=== PATIENT | male | born 1985 | race Hispanic/Latino ===

== ENCOUNTER → 2019-04-16 | Day surgery (SDC) | payer BC ==
[2019-04-14 15:04] LABS: BASOPHILS # (AUTO) 0.1 (0.0-0.1); BASOPHILS % 0.7 % (0.0-1.0); EOSINOPHILS # (AUTO) 0.3 (0.0-0.4); EOSINOPHILS % 3.1 % (0.0-6.0); HEMATOCRIT 48.6 % (38.2-49.6); HEMOGLOBIN 16.6 g/dL (14.0-18.0); LYMPHOCYTES # (AUTO) 2.1 (1.0-3.2); LYMPHOCYTES % 24.1 % (18.0-39.1); MEAN CORPUSCULAR HGB CONC 34.2 g/dL (31-35); MEAN CORPUSCULAR VOLUME 84.8 fL (81-99); MONOCYTES # (AUTO) 0.6 (0.2-0.8); MONOCYTES % 7.1 % (4.4-11.3); NEUTROPHILS # (AUTO) 5.5 (2.1-6.9); NEUTROPHILS % 64.8 % (38.7-80.0); PLATELET COUNT 229 x10e3/uL (140-360); RED BLOOD COUNT 5.73 x10e6/uL (4.3-5.7); RED CELL DISTRIBUTION WIDTH 12.2 % (11.7-14.4)
[2019-04-14 15:24] LABS: ALANINE AMINOTRANSFERASE 20 IU/L (0-55); ALBUMIN 4.2 g/dL (3.5-5.0); ALBUMIN/GLOBULIN RATIO 1.3 (0.8-2.0); ALKALINE PHOSPHATASE 108 IU/L (40-150); ANION GAP 12.1 mmol/L (8-16); BLOOD UREA NITROGEN 10 mg/dL (7-26); BUN/CREATININE RATIO 11 (6-25); CALCIUM 9.7 mg/dL (8.4-10.2); CARBON DIOXIDE 30 mmol/L (22-29); CHLORIDE 100 mmol/L (98-107); CREATININE, SERUM 0.93 mg/dL (0.72-1.25); EST GLOMERULAR FILTRATION RATE > 60 ML/MIN (60-); GLUCOSE 68 mg/dL (74-118); POTASSIUM 4.1 mmol/L (3.5-5.1); SODIUM 138 mmol/L (136-145)
[2019-04-14 16:19] LABS: EOSINOPHILS % (MANUAL) 5 % (0-7); LYMPHOCYTES % (MANUAL) 21 % (19-48); MONOCYTES % (MANUAL) 3 % (3.4-9.0); NEUTROPHILS % (MANUAL) 64 % (40-74); PLATELET ESTIMATE ADEQUATE; PLATELET MORPHOLOGY COMMENT FEW GIANT; RBC MORPHOLOGY COMMENT NORMAL; TEAR DROP CELLS RN
[2019-04-16] VITALS (12 sets, daily range): BP systolic 106–131; BP diastolic 53–92
[~2019-04-16] VITALS: Ht 170.2 cm; Wt 101.6 kg
[~2019-04-16] MED LIST: ASPIR 8181 MG PO; ASPIRIN 325 MG TAB ONE; FENTANYL CITRATE/PF 100MCG/2 ML INJ ONE; HEPARIN SOD (PORCINE) 1000 UNIT/ML 30ML ONE; HEPARIN SOD/SOD CHLORIDE 2,000 ML ONE; IOPAMIDOL 370 MG/ML 200 ML INFUS..BTL INJ ONE; LIDOCAINE HCL 2% LOCAL 20 ML VIAL ONE; MIDAZOLAM HCL 2 MG/2 ML VIAL ONE; NITROGLYCERIN/D5W 200 MCG/ML 250 ML ONE; SODIUM CHLORIDE 0.9% 1000ML 1,000 ML ONE; VERAPAMIL HCL 2.5 MG/ML 2 ML VIAL ONE
--- OUTSIDE RECORDS SUMMARY | 2019-04-16 06:06 | XMS REPORT ---
Author Author [facility] Address Unknown Phone Unavailable Care Team Providers Care [employer] Name Role Phone MIKA MANUEL Unavailable Unavailable Problems This patient has no known problems. Allergies, Adverse Reactions, Alerts This patient has no known allergies or adverse reactions. Medications This patient has no known medications. Results Test Description Test Time Test Comments Text Results Atomic Results Result Comments B-TYPE NATRIURETIC FACTOR (BNP) 2019-03-23 22:33:00 B-TYPE NATRIURETIC PEPTIDE (BEAKER) (test inci=870) 14 pg/mL 0-100 TROPONIN [id number] 22:33:00* Test Item Value Reference Range Comments TROPONIN I (BEAKER) (test mexv=673) < ng/mL 0.00-0.03 Troponin I (TnI) levels must be interpreted in the context of the presenting sym ptoms and the clinical findings. Elevated TnI levels indicate myocardial damage, but are not specific for ischemic heart disease. Elevated TnI levels are seen in patients with other cardiac conditions (including myocarditis and congestive h eart failure), and slight TnI elevations occur in patients with other conditions , including sepsis, renal failure, acidosis, acute neurological disease, and per sistent tachyarrhythmia.[id number] 22:26:00* Test Item Value Reference Range Comments MAGNESIUM (BEAKER) (test kfrw=103) 2.4 mg/dL 1.6-2.6 BASIC METABOLIC [id number] 22:26:00* Test Item Value Reference Range Comments SODIUM (BEAKER) (test dfjp=437) 140 meq/L 136-145 POTASSIUM (BEAKER) (test hljn=188) 4.3 meq/L 3.5-5.1 CHLORIDE (BEAKER) (test urhm=957) 104 meq/L 98-107 CO2 (BEAKER) (test lmds=276) 31 meq/L 22-29 BLOOD UREA NITROGEN (BEAKER) (test ponv=641) 18 mg/dL 7-21 CREATININE (BEAKER) (test llhy=042) 1.14 mg/dL 0.57-1.25 GLUCOSE RANDOM (BEAKER) (test abyu=006) 98 mg/dL 70-105 CALCIUM (BEAKER) (test typo=106) 9.4 mg/dL 8.4-10.2 EGFR (BEAKER) (test mjxn=8180) 73 mL/min/1.73 sq m ESTIMATED GFR IS NOT ACCURATE CREATININE CLEARANCE IN PREDICTING GLOMERULAR FILTRATION RATE. ESTIMATED GFR IS NOT APPLICABLE FOR DIALYSIS PATIENTS. CREATINE KINASE (CK)2019-03-23 22:26:00* Test Item Value Reference Range Comments CREATINE KINASE TOTAL (BEAKER) (test vtqk=653) 146 U/L 29-200 CBC W/PLT COUNT & AUTO [id number] 22:11:00* Test Item Value Reference Range Comments WHITE BLOOD CELL COUNT (BEAKER) (test goii=999) 8.5 K/ L 3.5-10.5 RED BLOOD CELL COUNT (BEAKER) (test rvzt=849) 5.92 M/ L 4.63-6.08 HEMOGLOBIN (BEAKER) (test zple=373) 16.8 GM/DL 13.7-17.5 HEMATOCRIT (BEAKER) (test eohp=253) 51.1 % 40.1-51.0 MEAN CORPUSCULAR VOLUME (BEAKER) (test nzbk=978) 86.3 fL 79.0-92.2 MEAN CORPUSCULAR HEMOGLOBIN (BEAKER) (test cneb=928) 28.4 pg 25.7-32.2 MEAN CORPUSCULAR HEMOGLOBIN CONC (BEAKER) (test sino=744) 32.9 GM/DL 32.3-36.5 RED CELL DISTRIBUTION WIDTH (BEAKER) (test idod=815) 12.1 % 11.6-14.4 PLATELET COUNT (BEAKER) (test zoyp=027) 241 K/CU MM 150-450 MEAN PLATELET VOLUME (BEAKER) (test mrch=060) 11.0 fL 9.4-12.4 NUCLEATED RED BLOOD CELLS (BEAKER) (test fgmb=121) 0 /100 WBC 0-0 NEUTROPHILS RELATIVE PERCENT (BEAKER) (test fnsw=041) 57 % LYMPHOCYTES RELATIVE PERCENT (BEAKER) (test kxxz=561) 30 % MONOCYTES RELATIVE PERCENT (BEAKER) (test acke=749) 7 % EOSINOPHILS RELATIVE PERCENT (BEAKER) (test yhdw=336) 5 % BASOPHILS RELATIVE PERCENT (BEAKER) (test sqwu=089) 1 % NEUTROPHILS ABSOLUTE COUNT (BEAKER) (test slzx=471) 4.84 K/ L 1.78-5.38 LYMPHOCYTES ABSOLUTE COUNT (BEAKER) (test eomb=873) 2.55 K/ L 1.32-3.57 MONOCYTES ABSOLUTE COUNT (BEAKER) (test gnnd=298) 0.60 K/ L 0.30-0.82 EOSINOPHILS ABSOLUTE COUNT (BEAKER) (test axeg=747) 0.43 K/ L 0.04-0.54 BASOPHILS ABSOLUTE COUNT (BEAKER) (test dbrs=490) 0.09 K/ L 0.01-0.08 IMMATURE GRANULOCYTES-RELATIVE PERCENT (BEAKER) (test ckrd=7582) 0 % 0-1 RAD, CHEST, 1 VIEW, NON [id number] 21:50:00Reason for exam:->CHEST PAINFINAL REPORT History: Chest pain. Comparison: None. Findings: A single view of the chest is submitted. The cardiomediastinal contours are unremarkable. There is no focal consolidation, pneumothorax, large pleural ef fusion or evidence of overt pulmonary edema. There is no acute bony abnormalit y. Impression: No acute abnormality. Signed: Baldev Joyce MDReport Verified Robi e/Time: 03/23/2019 21:50:00
--- NOTE | 2019-04-16 16:50 | Operative Report ---
DATE OF PROCEDURE: 04/16/2019 SURGEON: Timothy Jessica MD PROCEDURE: Cardiac catheterization. MACHINERY MOVER: Timothy Jessica MD, Interventional Cardiology. PROCEDURE INDICATION: Chest pain and dyspnea concerning for angina pectoris with abnormal stress test. PROCEDURE PERFORMED: 1. Left heart catheterization. 2. Selective coronary angiography. 3. Right radial TR band hemostasis. PROCEDURE COMPLICATIONS: None. ESTIMATED BLOOD LOSS: Less than 15 mL. PROCEDURE SUMMARY: After consent was obtained, the patient was prepped and draped in a sterile fashion. The right radial site was locally infiltrated with 2% lidocaine and access was obtained with a 5-Iranian slender sheath. TIG catheter was initially attempted for engagement of the left main and right coronary artery. Additional catheters including a Kleber catheter, which engaged the right coronary artery. A 3DRC will which engage the right coronary artery and XB LAD 3.0, which engaged the left main most optimally. The following findings were noted. 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 1. LV pressure is 115/-5 with end-diastolic pressure of 8. 2. Aortic pressure was 113/58. 3. No left ventriculogram was performed. 4. Left main is large in caliber with luminal irregularities gives an LAD and circumflex. 5. The LAD has luminal irregularities throughout gives two diagonals and multiple septal perforators. 6. The circumflex has luminal irregularities and gives three obtuse marginals. 7. The right coronary artery has a proximal spasm on engagement with a Kleber catheter which resolved on further imaging with the 3DRC nonselective engagement. Luminal irregularities are noted otherwise throughout the right coronary artery, which is a dominant vessel, gives a conus branch proximally and RV marginals in the mid segment and terminal RPDA and RPLV. CONCLUSION: Luminal irregularities with otherwise no significant obstructive coronary artery disease. RECOMMENDATIONS: Medical management and wean TR band. Timothy Jessica MD AFV/MODL /[id number]
== END | disposition home or self-care (01) ==
LOC: CATH LAB 05:51
PROVIDERS: ATTEND Internal Medicine Cardiovascular Disease
DX: I25.10 Atherosclerotic heart disease of native coronary artery without angina pectoris (principal); R94.39 Abnormal result of other cardiovascular function study; I77.1 Stricture of artery; Z01.810 Encounter for preprocedural cardiovascular examination; Z01.812 Encounter for preprocedural laboratory examination; Z79.82 Long term (current) use of aspirin
CPT/HCPCS: 36415; 80053; 85025; 93005; 93458; C1887 ×2; J1644; J2001; J2250; J3010; J7030; Q9967; 99152; 99153